=== PATIENT | male | born 1950 | race Caucasian/White ===

== ENCOUNTER 2021-04-27 14:06 | Emergency (ER) | payer OTHER ==
[2021-04-27 14:26] VITALS: BP 118/75; PULSE 89; TEMP 97.9; BMI 24.3
[2021-04-27 16:06] LABS: BASO % 0.6 % (0-2.0); EOS % 2.8 % (0-4.5); HEMATOCRIT 40.8 % (35.4-49); HEMOGLOBIN 13.9 GM/dL (11.7-16.9); LYMPH % 30.5 % (8-40); MCH 28.6 pg (25.7-33.7); MCHC 34.1 g/dl (32.0-35.9); MEAN CELL VOLUME 83.9 fl (80-96); MEAN PLT VOLUME 7.4 fl (7.5-11.1); MONO % 7.5 % (3.8-10.2); NEUT % 58.6 % (42.8-82.8); PLATELET COUNT 296 10^3/uL (134-434); RBC 4.86 M/mm3 (4.00-5.60); RDW 13.8 % (11.9-15.9)
[2021-04-27 16:24] LABS: CALCIUM 9.3 mg/dL (8.5-10.1)
[2021-04-27 16:25] LABS: ALBUMIN 4.1 g/dl (3.4-5.0); BLOOD UREA NITROGEN 17.2 mg/dL (7-18); PH,URINE 5.5 (5.0-8.0); URINE APPEARANCE CLEAR; URINE BILIRUBIN NEGATIVE (NEGATIVE); URINE COLOR YELLOW; URINE GLUCOSE (UA) NEGATIVE (NEGATIVE); URINE KETONE NEGATIVE (NEGATIVE); URINE LEUK ESTERASE NEGATIVE (NEGATIVE); URINE NITRITE NEGATIVE (NEGATIVE); URINE PROTEIN NEGATIVE (NEGATIVE); URINE UROBILINOGEN 0.2 mg/dL (0.2-1.0)
[2021-04-27 16:28] LABS: CREATININE 1.1 mg/dL (0.55-1.3)
[2021-04-27 16:30] LABS: BILIRUBIN,TOTAL 0.7 mg/dL (0.2-1); TOT PROT 7.6 g/dl (6.4-8.2)
[2021-04-27 16:33] LABS: PROTHROMBIN TIME (PATIENT) 13.6 SEC (9.7-13.0)
[2021-04-27 16:34] LABS: INR 1.18 (0.83-1.09)
== END 2021-04-27 19:04 | disposition home or self-care (01) ==
LOC: JER 14:06
DX: N40.1 Benign prostatic hyperplasia with lower urinary tract symptoms (principal)
CPT/HCPCS: 36415; 74177-TC; 80053; 81003; 85025; 85610; 87086; 99285-25; Q9967

== ENCOUNTER 2024-07-29 14:22 | Emergency (ER) | payer OTHER ==
[2024-07-29 14:32] VITALS: TEMP 97.9; BMI 23.2
[2024-07-29] MEDS ORDERED: FLUORESCEIN NA 1 EA STRIP ONE (14:49)
[2024-07-29] MEDS ORDERED: TETRACAINE 0.5% OPHTH SOLN 2 ML BOTTLE ONE (14:53)
[2024-07-29] MEDS: FLUORESCEIN NA 1 EA STRIP OS ONE (15:00)
[2024-07-29] MEDS: TETRACAINE 0.5% HCL 0.6ML DROPPER.BOTTLE OU ONE (15:00)
[2024-07-29 16:37] VITALS: BP 160/88; PULSE 88; RESP 18
== END 2024-07-29 16:37 | disposition short-term general hospital (02) ==
LOC: JER 14:22
DX: H53.142 Visual discomfort, left eye (principal); T65.891A Toxic effect of other specified substances, accidental (unintentional), initial encounter; T26.92XA Corrosion of left eye and adnexa, part unspecified, initial encounter
CPT/HCPCS: 99285-25